=== PATIENT | male | born 1970 | race Caucasian/White ===

== ENCOUNTER 2020-12-12 19:08 | Inpatient (IN) | payer OTHER, SELFPAY ==
[2020-12-12] VITALS (11 sets, daily range): BP systolic 75–113; BP diastolic 52–75; PULSE 81–107; RESP 18; TEMP 37; O2SAT 92–100
--- NOTE | 2020-12-12 19:20 | ED_ITS ---
HPI - Dental/Oral General Chief complaint: Dental/Oral Stated complaint: LEFT SIDE OF FACE SWELLING Time Seen by Provider: 12/12/20 19:19 Source: patient Mode of arrival: Ambulatory Limitations: no limitations History of Present Illness HPI Narrative: Patient is a 50-year-old male history of diabetes coronary artery disease hypertension presenting will left side of neck swelling which he says has been there for last 5 days. He denies any difficulty swallowing no tongue pain no difficulty breathing. He does have poor dental hygiene. He initially saw his PCP who told him to suck on lemon drops but it has progressively gotten worse. He denies any tongue pain. He started developing headache today which brought him to the emergency department. He denies any chest pain fever chills nausea or vomiting Related Data Home Medications Medication Instructions Recorded Confirmed Acid Senior Qa Analyst (omeprazole) 40 mg 12/13/20 aspirin 325 mg PO QPM 12/13/20 12/13/20 atorvastatin 80 mg PO QPM 12/13/20 12/13/20 carvedilol 6.25 mg PO BID 12/13/20 12/13/20 furosemide 20 mg PO BID 12/13/20 12/13/20 glipizide 20 mg PO QAM 12/13/20 12/13/20 insulin glargine [Lantus U-100 30 unit SUBCUT QPM 12/13/20 12/13/20 Insulin] lisinopril 20 mg PO QAM 12/13/20 12/13/20 metformin 750 mg PO QPM 12/13/20 12/13/20 omeprazole 40 mg PO QAM 12/13/20 12/13/20 pantoprazole PO 12/13/20 spironolactone 50 mg PO QAM 12/13/20 12/13/20 Allergies Allergy/AdvReac Type Severity Reaction Status Date / Time No Known Drug Allergies Allergy Verified 12/12/20 19:53 Review of Systems Review of Systems ROS Unobtainable: All systems reviewed & are unremarkable except as noted in HPI and below Constitutional Constitutional: Denies chills, Denies fever(s), Denies lethargy and Denies weakness Eyes Eyes: Denies change in vision, Denies eye discharge, Denies irritation and Denies loss of vision ENT Ears, Nose, Mouth, and Throat: Reports system reviewed and no additional complaints, except as documented Cardiovascular Cardiovascular: Denies chest pain, Denies irregular heart rhythm, Denies lightheadedness, Denies palpitations, Denies dyspnea, Denies dyspnea on exertion and Denies orthopnea Respiratory Respiratory: Denies cough, Denies dyspnea, Denies dyspnea on exertion and Denies wheezing Gastrointestinal Gastrointestinal: Denies abdominal pain, Denies change in bowel habits, Denies diarrhea, Denies nausea and Denies vomiting Integumentary/Breasts Skin/Breast: Reports system reviewed and no additional complaints, except as documented and Reports skin swelling Neurologic Neurologic: Denies loss of vision and Denies weakness Endocrine Endocrine: Denies palpitations Allergic/Immunologic Allergic/Immunologic: Denies wheezing Patient History Medical History (Updated 12/13/20 @ 00:32 by JANIE Santos) Coronary artery disease Essential hypertension History of necrotizing fasciitis History of ST elevation myocardial infarction (STEMI) Mixed hyperlipidemia due to type 2 diabetes mellitus Pacemaker Surgical History (Updated 12/13/20 @ 00:32 by JANIE Santos) History of coronary artery bypass graft x 6 History of implanted electronic device Family History (Updated 12/13/20 @ 00:34 by JANIE Santos) Father Hypertension Hyperlipidemia Stroke Diabetes mellitus Heart attack Mother Diabetes mellitus Heart attack Hyperlipidemia Hypertension Stroke Social History household members: spouse and family Smoking Status: Former smoker alcohol intake: current Exam Initial Vital Signs Initial Vital Signs: Vital Signs Pulse Rate 107 H 12/12/20 19:15 Blood Pressure 101/61 12/12/20 19:15 Pulse Oximetry 98 12/12/20 19:15 GENERAL: [Well-appearing, well-nourished] and in [no acute] distress. HEENT: Head atraumatic,EOMI, pupils reactive, face symmetric, [moist] mucous membranes NECK: Large Sub mandibular swelling. poor dentition and hygiene decreased range of motion due to swelling mild erythema no obvious fluctuation. neck is supple no stridor CARDIOVASCULAR: Regular rate and rhythm without murmurs, rubs or gallops. RESPIRATORY: Breath sounds equal bilaterally, no wheezes rales or rhonchi. ABDOMEN: Soft, nontender. Normoactive bowel sounds all 4 quadrants. No guarding or rebound EXTREMITIES: Normal range of motion, no clubbing or edema. Neurovascularly intact NEUROLOGICAL: Alert and oriented x4.Normal gait and speech. SKIN: Warm, dry, no laceration, no petechiae, no rashes or lesions. Course Orders Ordered: ED Orders 12/12/20 22:50 Lactate (Lactic Acid) Stat 12/12/20 22:51 COVID19 - ADMIT (SOAP INSPECTOR swab/PCR) Stat 12/12/20 23:30 Education, smoking cessation ONGOING 12/13/20 04:58 Complete Blood Count AUTO DIFF DAILY Comprehensive Metabolic Panel DAILY Partial Thromboplastin Time Routine Prothrombin Time INR Routine 12/14/20 05:00 Complete Blood Count AUTO DIFF DAILY Comprehensive Metabolic Panel DAILY 12/15/20 05:00 Complete Blood Count AUTO DIFF DAILY Acetaminophen (Acetaminophen 325 Mg Tablet) 650 mg PO Q6HR PRN PRN Reason: Fever/Mild Pain (1-3) Dexamethasone (Dexamethasone 10 Mg/Ml Vial) 10 mg IV BID [facility] Dextrose (Dextrose 50 % In Water 25 Gm/50 Ml Syringe) 25 gm IV PRN PRN PRN Reason: Hypoglycemia Enoxaparin Sodium (Enoxaparin 40 Mg/0.4 Ml Syringe) 40 mg SUBCUT DAILY [facility] Ampicillin Sodium/Sulbactam (Sodium 3 gm/ Sodium Chloride) 100 mls @ 100 mls/hr IV Q6H [facility] Last Infusion: 12/13/20 02:30 Dose: 0 mls/hr Documented by: Admin: 12/13/20 01:28 Dose: 100 mls/hr Documented by: DOUGLAS Insulin Glargine (Insulin Glargine 100 Unit/Ml 3ml Pen) 40 unit SUBCUT 2100 [facility] Insulin Human Lispro (Insulin Lispro 100 Unit/Ml 3ml Vial) 0 unit SUBCUT ACHS [facility]; Protocol Ketorolac Tromethamine (Ketorolac 30 Mg/Ml Vial) 30 mg IV Q6HR PRN PRN Reason: Pain, Severe (7-10) Stop: 12/17/20 23:32 Last Admin: 12/13/20 00:49 Dose: 30 mg Documented by: DOUGLAS Naloxone HCl (Naloxone 0.4 Mg/Ml Vial) 0.2 mg IV Q2MIN PRN PRN Reason: Opiate Reversal Nicotine (Nicotine 14 Patch) 14 mg TOP DAILY [facility] Last Admin: 12/13/20 05:08 Dose: 14 mg Documented by: DOUGLAS Ondansetron HCl (Ondansetron 4 Mg/2 Ml Inj) 4 mg IV Q8HR PRN PRN Reason: Nausea And Vomiting Pantoprazole Sodium (Pantoprazole 40 Mg Vial) 40 mg IV DAILY [facility] Discontinued Medications Ampicillin Sodium/Sulbactam (Sodium 3 gm/ Sodium Chloride) 100 mls @ 100 mls/hr IV NOW ONE Stop: 12/12/20 19:39 Last Infusion: 12/12/20 21:38 Dose: 0 mls/hr Documented by: Admin: 12/12/20 20:15 Dose: 100 mls/hr Documented by: SIMI Dexamethasone 20 mg/ Sodium (Chloride) 52 mls @ 208 mls/hr IV NOW ONE Stop: 12/12/20 22:20 Last Infusion: 12/12/20 22:55 Dose: 208 mls/hr Documented by: Admin: 12/12/20 22:34 Dose: 208 mls/hr Documented by: SIMI Sodium Chloride (Normal Saline 0.9%) 1,000 mls @ 1,000 mls/hr IV BOLUS ONE Stop: 12/12/20 23:22 Last Infusion: 12/13/20 00:22 Dose: 0 mls/hr Documented by: Admin: 12/12/20 22:39 Dose: 1,000 mls/hr Documented by: SIMI Sodium Chloride (Normal Saline 0.9%) 1,000 mls @ 1,000 mls/hr IV BOLUS ONE Stop: 12/12/20 23:24 Last Infusion: 12/13/20 00:22 Dose: 0 mls/hr Documented by: Admin: 12/12/20 22:54 Dose: 1,000 mls/hr Documented by: SIMI Sodium Chloride (Normal Saline 0.9%) 500 mls @ 1,000 mls/hr IV BOLUS ONE Stop: 12/13/20 02:06 Last Infusion: 12/13/20 02:30 Dose: 0 mls/hr Documented by: Admin: 12/13/20 01:57 Dose: 1,000 mls/hr Documented by: DOUGLAS Insulin Glargine (Insulin Glargine 100 Unit/Ml 3ml Pen) 40 unit SUBCUT BEDTIME ONE Stop: 12/12/20 23:40 Last Admin: 12/13/20 01:35 Dose: Not Given Documented by: DOUGLAS Insulin Glargine (Insulin Glargine 100 Unit/Ml 3ml Pen) 40 unit SUBCUT BEDTIME ONE Stop: 12/13/20 01:16 Last Admin: 12/13/20 01:30 Dose: 40 unit Documented by: DOUGLAS Cosigned by: EDUARDO Morphine Sulfate (Morphine 2 Mg/Ml Inj) 2 mg IV NOW ONE Stop: 12/12/20 20:58 Last Admin: 12/12/20 21:03 Dose: 2 mg Documented by: JAVONFF Vital Signs Vital signs: Vital Signs - 8 hr 12/12/20 22:22 12/12/20 22:23 12/12/20 22:24 Pulse Rate 91 H 92 H 87 Blood Pressure 84/59 L 83/54 L Pulse Oximetry 93 92 93 12/12/20 22:30 12/12/20 22:35 12/12/20 23:00 Pulse Rate 87 86 83 Blood Pressure 77/52 L 79/55 L 75/59 L Pulse Oximetry 92 94 97 12/12/20 23:05 12/12/20 23:30 Pulse Rate 88 81 Blood Pressure 113/64 111/65 Pulse Oximetry 98 97 MDM - Dental/Oral Lab Data Attestation: I reviewed the patient's lab results. Result diagrams: 12/13/20 04:58 12/13/20 04:58 Labs: Lab Results 12/12/20 12/12/20 12/12/20 Range/Units 19:45 19:45 19:45 WBC 12.1 H (4.5-11.0) X10^3/uL RBC 4.81 (4.5-5.9) X10^6/uL Hgb 14.5 (13.5-17.5) g/dL Hct 42.9 (41-53) % MCV 89.1 (80-100) fL MCH 30.1 (26-34) PG MCHC 33.8 (30-36) % RDW 14.4 (11.6-14.8) % Plt Count 161 (150-400) X10^3/uL Neut % (Auto) 88.4 H (50-75) % Lymph % (Auto) 4.1 L (25-40) % Larue % (Auto) 6.6 (3-14) % Eos % (Auto) 0.5 L (2-4) % Baso % (Auto) 0.4 (0-2) % Neut # (Auto) 83880 H (5323-1811) /uL Lymph # (Auto) 500 L (6062-7545) /uL Larue # (Auto) 800 (0-900) /uL Eos # (Auto) 100 (0-450) /uL Baso # (Auto) 0 (0-100) /uL Sodium 127 L (137-145) mmol/L Potassium 4.7 (3.4-5.1) mmol/L Chloride 95 L (98-107) mmol/L Carbon Dioxide 24 (22-32) mmol/L BUN 29 H (9-20) mg/dL Creatinine 1.67 H (0.66-1.25) mg/dL Estimated GFR 43.4 L (>60) mL/min BUN/Creatinine Ratio 17.4 (6-22) Glucose 335 H (70-100) mg/dL Hemoglobin A1c (4.0-6.0) % Lactate 1.5 (0.7-2.1) mmol/L Calcium 8.7 (8.4-10.2) mg/dL Magnesium (1.6-2.3) mg/dL Total Bilirubin 0.9 (0.2-1.3) mg/dL AST 19 (17-59) IU/L ALT 19 (<50) IU/L Alkaline Phosphatase 106 (38-126) U/L Total Protein 6.6 (6.3-8.2) g/dL Albumin 3.4 L (3.5-5.0) g/dL Globulin 3.2 (1.7-4.1) g/dL Albumin/Globulin Ratio 1.1 (1.0-2.8) Procalcitonin (<0.5) ng/mL SARS-CoV-2 (PCR) (Negative) 12/12/20 12/12/20 12/12/20 Range/Units 19:45 19:45 19:45 WBC (4.5-11.0) X10^3/uL RBC (4.5-5.9) X10^6/uL Hgb (13.5-17.5) g/dL Hct (41-53) % MCV (80-100) fL MCH (26-34) PG MCHC (30-36) % RDW (11.6-14.8) % Plt Count (150-400) X10^3/uL Neut % (Auto) (50-75) % Lymph % (Auto) (25-40) % Larue % (Auto) (3-14) % Eos % (Auto) (2-4) % Baso % (Auto) (0-2) % Neut # (Auto) (3467-9778) /uL Lymph # (Auto) (2105-3297) /uL Larue # (Auto) (0-900) /uL Eos # (Auto) (0-450) /uL Baso # (Auto) (0-100) /uL Sodium (137-145) mmol/L Potassium (3.4-5.1) mmol/L Chloride (98-107) mmol/L Carbon Dioxide (22-32) mmol/L BUN (9-20) mg/dL Creatinine (0.66-1.25) mg/dL Estimated GFR (>60) mL/min BUN/Creatinine Ratio (6-22) Glucose (70-100) mg/dL Hemoglobin A1c 10.2 H (4.0-6.0) % Lactate (0.7-2.1) mmol/L Calcium (8.4-10.2) mg/dL Magnesium 1.9 (1.6-2.3) mg/dL Total Bilirubin (0.2-1.3) mg/dL AST (17-59) IU/L ALT (<50) IU/L Alkaline Phosphatase (38-126) U/L Total Protein (6.3-8.2) g/dL Albumin (3.5-5.0) g/dL Globulin (1.7-4.1) g/dL Albumin/Globulin Ratio (1.0-2.8) Procalcitonin 0.41 (<0.5) ng/mL SARS-CoV-2 (PCR) (Negative) 12/12/20 12/12/20 Range/Units 22:50 22:51 WBC (4.5-11.0) X10^3/uL RBC (4.5-5.9) X10^6/uL Hgb (13.5-17.5) g/dL Hct (41-53) % MCV (80-100) fL MCH (26-34) PG MCHC (30-36) % RDW (11.6-14.8) % Plt Count (150-400) X10^3/uL Neut % (Auto) (50-75) % Lymph % (Auto) (25-40) % Larue % (Auto) (3-14) % Eos % (Auto) (2-4) % Baso % (Auto) (0-2) % Neut # (Auto) (3628-7509) /uL Lymph # (Auto) (4740-8805) /uL Larue # (Auto) (0-900) /uL Eos # (Auto) (0-450) /uL Baso # (Auto) (0-100) /uL Sodium (137-145) mmol/L Potassium (3.4-5.1) mmol/L Chloride (98-107) mmol/L Carbon Dioxide (22-32) mmol/L BUN (9-20) mg/dL Creatinine (0.66-1.25) mg/dL Estimated GFR (>60) mL/min BUN/Creatinine Ratio (6-22) Glucose (70-100) mg/dL Hemoglobin A1c (4.0-6.0) % Lactate 1.3 (0.7-2.1) mmol/L Calcium (8.4-10.2) mg/dL Magnesium (1.6-2.3) mg/dL Total Bilirubin (0.2-1.3) mg/dL AST (17-59) IU/L ALT (<50) IU/L Alkaline Phosphatase (38-126) U/L Total Protein (6.3-8.2) g/dL Albumin (3.5-5.0) g/dL Globulin (1.7-4.1) g/dL Albumin/Globulin Ratio (1.0-2.8) Procalcitonin (<0.5) ng/mL SARS-CoV-2 (PCR) Negative (Negative) Imaging Data Ct soft tissue neck: Radiologist's Impression: PROCEDURE: CT SOFT TISSUE NECK W CON INDICATIONS: Abscess TECHNIQUE: After the administration of intravenous contrast, 3.0 mm axial sections acquired from the sella to the aortic arch. Additional oblique axial 3.0 mm sections acquired through the pharynx. 3 mm thick coronal and sagittal reformats were generated. For radiation dose reduction, the following was used: automated exposure control. COMPARISON: None. FINDINGS: Image quality: Excellent. Lymph nodes: No enlarged lymph nodes seen throughout the neck. Vessels: Visualized vasculature appears patent. Small amount of gas within the veins in the neck bilaterally. Small amount of gas within the jugular vein. This gas could be due to IV bolus injection. Neck spaces: Left submental fluid collection measuring 2.2 x 1.9 x 1.8 cm, ( and ), estimated volume of 4 cc. This is in the region of the left submandibular gland There is surrounding soft tissue thickening and fat stranding and heterogeneous surrounding enhancement. Small adjacent lymph node which is favored to be reactive. Thickening along the platysmas. The oropharynx, nasopharynx, and pharynx demonstrate no mucosal lesions. The vocal cords, false vocal cords, pyriform sinuses, epiglottis, vallecula, and tongue base all appear normal. Extramucosal spaces appear unremarkable. Glands: The parotid and submandibular glands appear normal. Thyroid gland is unremarkable. Miscellaneous: Visualized brain and orbits appear normal. Lung apices appear clear. Superficial soft tissues appear normal. Left pacemaker. Bones: No suspicious bony lesions. Visualized sinuses and mastoids appear unremarkable. Post median sternotomy. IMPRESSION: 1. Findings most compatible with left submental abscess measuring 2.2 cm and volume of 4 cc. Suspect submandibular gland abscess. A suppurative lymph node with abscess or mass could have a similar appearance. -Recommend follow-up to resolution. 2. No enlarged lymph nodes identified. 3. A trace amount of gas within the bilateral neck veins. Suspect that this is iatrogenic due to IV contrast bolus administration. Dictated by: Dorian Buenrostro M.D. on 12/12/2020 at 21:34 Approved by: Dorian Buenrostro M.D. on 12/12/2020 at 21:55 MDM Narrative Medical decision making narrative: Patient has obvious swelling of his neck he has a short wide neck at baseline and would be difficult airway. Concern is for deep neck soft tissue infection and Landen's angina. Currently his airway is intact is he is managing his own secretions he is not in a significant amount of pain. CT does confirm a 2.2 cm abscess. He overall appears comfortable but requesting medication for headache. He is given 2 mg of morphine. 2200-Dr. Mikie WANG updated on patient's symptoms test results and CT scan at this time recommends 20 mg of Decadron and then 10 mg IV twice a day along with IV antibiotics and close monitoring. He is happy to consult and recommends hospitalist call him 1st thing in the morning. Initial blood pressure was 101/75 unfortunately no follow-up blood pressures were taken until 3 hours later where was noted to be significantly low systolic in the 70s and 80s. Unlikely to be related to the morphine which was given an hour and half prior. Repeat lactate was done 2nd IV placed normal saline bolus given. His blood pressure retaken on the right arm in a instantly was 113/64. Patient states that he always has low blood pressures in his left arm because he had a 6 vessel CABG and they took veins from that. At this time patient does not appear to be in septic shock. He continues to manage his own airway. Hospitalist Audi STRINGER in ED to see and evaluate patient updated on patient's all blood pressure please keep cuff on right arm Discharge Plan Departure Patient Disposition: Admitted As Inpatient Clinical Impression: Submental abscess, Acute hyponatremia Admit Date/Time: 12/12/20 23:35 Admit Provider: Deborah Huntley
--- NOTE | 2020-12-12 19:37 | DI.CT.S_ITS ---
PROCEDURE: CT SOFT TISSUE NECK W CON INDICATIONS: Abscess TECHNIQUE: After the administration of intravenous contrast, 3.0 mm axial sections acquired from the sella to the aortic arch. Additional oblique axial 3.0 mm sections acquired through the pharynx. 3 mm thick coronal and sagittal reformats were generated. For radiation dose reduction, the following was used: automated exposure control. COMPARISON: None. FINDINGS: Image quality: Excellent. Lymph nodes: No enlarged lymph nodes seen throughout the neck. Vessels: Visualized vasculature appears patent. Small amount of gas within the veins in the neck bilaterally. Small amount of gas within the jugular vein. This gas could be due to IV bolus injection. Neck spaces: Left submental fluid collection measuring 2.2 x 1.9 x 1.8 cm, ( and ), estimated volume of 4 cc. This is in the region of the left submandibular gland There is surrounding soft tissue thickening and fat stranding and heterogeneous surrounding enhancement. Small adjacent lymph node which is favored to be reactive. Thickening along the platysmas. The oropharynx, nasopharynx, and pharynx demonstrate no mucosal lesions. The vocal cords, false vocal cords, pyriform sinuses, epiglottis, vallecula, and tongue base all appear normal. Extramucosal spaces appear unremarkable. Glands: The parotid and submandibular glands appear normal. Thyroid gland is unremarkable. Miscellaneous: Visualized brain and orbits appear normal. Lung apices appear clear. Superficial soft tissues appear normal. Left pacemaker. Bones: No suspicious bony lesions. Visualized sinuses and mastoids appear unremarkable. Post median sternotomy. IMPRESSION: 1. Findings most compatible with left submental abscess measuring 2.2 cm and volume of 4 cc. Suspect submandibular gland abscess. A suppurative lymph node with abscess or mass could have a similar appearance. -Recommend follow-up to resolution. 2. No enlarged lymph nodes identified. 3. A trace amount of gas within the bilateral neck veins. Suspect that this is iatrogenic due to IV contrast bolus administration. Dictated by: Dorian Buenrostro M.D. on 12/12/2020 at 21:34 Approved by: Dorian Buenrostro M.D. on 12/12/2020 at 21:55
[2020-12-12 19:55] LABS: Add Manual Diff / Slide Review NO; Basophils Absolute Auto 0 /uL (0-100); Basophils Percent Auto 0.4 % (0-2); Eosinophils Absolute Auto 100 /uL (0-450); Eosinophils Percent Auto 0.5 % (2-4); Hematocrit 42.9 % (41-53); Hemoglobin 14.5 g/dL (13.5-17.5); Lymphocytes Absolute Auto 500 /uL (1100-4500); Lymphocytes Percent Auto 4.1 % (25-40); Mean Corpuscular HGB Conc 33.8 % (30-36); Mean Corpuscular Hemoglobin 30.1 PG (26-34); Mean Corpuscular Volume 89.1 fL (80-100); Monocytes Absolute Auto 800 /uL (0-900); Monocytes Percent Auto 6.6 % (3-14); Neutrophils Absolute Auto 10700 /uL (1500-7000); Neutrophils Percent Auto 88.4 % (50-75); Platelet Count 161 X10^3/uL (150-400); Red Blood Cell Count 4.81 X10^6/uL (4.5-5.9); Red Cell Distribution Width 14.4 % (11.6-14.8); White Blood Cell Count 12.1 X10^3/uL (4.5-11.0)
[2020-12-12 20:13] LABS: Alanine Aminotransferase 19 IU/L (<50); Albumin 3.4 g/dL (3.5-5.0); Albumin Globulin Ratio 1.1 (1.0-2.8); Alkaline Phosphatase 106 U/L (38-126); Aspartate Aminotransferase 19 IU/L (17-59); BUN Creatinine Ratio 17.4 (6-22); Bilirubin Total 0.9 mg/dL (0.2-1.3); Blood Urea Nitrogen 29 mg/dL (9-20); Calcium 8.7 mg/dL (8.4-10.2); Carbon Dioxide 24 mmol/L (22-32); Chloride 95 mmol/L (98-107); Estimated Glomerular Filt Rate 43.4 mL/min (>60); Globulin 3.2 g/dL (1.7-4.1); Glucose 335 mg/dL (70-100); HEMOLYSIS < 15 (0-50); Lactate (Lactic Acid) 1.5 mmol/L (0.7-2.1); Potassium 4.7 mmol/L (3.4-5.1); Sodium 127 mmol/L (137-145); Total Protein 6.6 g/dL (6.3-8.2)
[2020-12-12] MEDS: AMPICILLIN/SULBACTAM 3 GM 3 GM in SODIUM CHLORIDE 0.9% 100 ML IV (20:15)
[2020-12-12] MEDS: MORPHINE 2 MG/ML INJ IV (21:03)
[2020-12-12] MEDS: dexAMETHasone 20 MG in SODIUM CHLORIDE 0.9% 50 ML 208 ML IV (22:34)
[2020-12-12] MEDS: SODIUM CHLORIDE 0.9% 1,000 ML 1000 ML IV ×2 (22:39→22:54)
[2020-12-12 22:57] LABS: Procalcitonin 0.41 ng/mL (<0.5)
[2020-12-12 23:11] LABS: Lactate (Lactic Acid) 1.3 mmol/L (0.7-2.1)
--- NOTE | 2020-12-12 23:42 | PM.HP.1 ---
History of Present Illness History of Present Illness Date Patient Seen: 12/12/20 Time Patient Seen: 23:42 Chief complaint: LEFT SIDE OF FACE SWELLING Narrative: Patient is a 50-year-old male [address] presented to the ED with chief compliant of left side of neck swelling with a fever and chills for the last 5 days. He denies any difficulty swallowing, no tongue pain, no difficulty breathing. He does have poor dental hygiene and reports a hx of dental infections. He last saw a dentist over 20yrs ago. He initially saw his PCP who told him to suck on lemon drops but it has progressively gotten worse. He started developing headache today which brought him to the emergency department. He denies any chest pain or SOB. Patient states that he has had no Nausea or vomiting until he received morphine in the ED today. Patient is in no distress, does not appear septic or fluid overloaded,airway is protected and stable, and resting quietly in the bed. Patient has a history hypertension, hyperlipidemia, coronary artery disease with a STEMI /vessel x 6 CABG and carotid occlusion, pacemaker/defibrillator implant (patient's mobile architect Dr. Fina Best), type 2 diabetes. Patient is unable to tell me if he is taking an anticoagulant, the nurse contacted his who also was unable to tell us if he is taking anticoagulant. Patient's vitals upon admit BP 75/59, HR 79, RR 18, O2 saturation 97% on room air with a map of 63. Labs: WBC 12.1, neut# 10,700, low sodium 127, Cl 95, BUN 29, creatinine 1.67, glucose 335, EGFR 43.4, patient did not appear to be in DKA and has an anion gap of 8, patient's creatinine in present elevation of 0.42 noting mild KAMILAH though patient's baseline is unknown. Soft Tissue Neck CT:Findings most compatible with left submental abscess measuring 2.2 cm and volume of 4 cc. Suspect submandibular gland abscess. 2199-Dr. Anthony Deluna ENT updated on patient's symptoms test results and CT scan at this time recommends 20 mg of Decadron and then 10 mg IV twice a day along with IV antibiotics and close monitoring. He is happy to consult and recommends hospitalist call him 1st thing in the morning. Patient History Medical History (Updated 12/13/20 @ 00:32 by JANIE Santos) Coronary artery disease Essential hypertension History of necrotizing fasciitis History of ST elevation myocardial infarction (STEMI) Mixed hyperlipidemia due to type 2 diabetes mellitus Pacemaker Surgical History (Updated 12/13/20 @ 00:32 by JANIE Santos) History of coronary artery bypass graft x 6 History of implanted electronic device Family & Social History Family History (Updated 12/13/20 @ 00:33 by JANIE Santos) Father Hypertension Hyperlipidemia Stroke Diabetes mellitus Heart attack Mother Diabetes mellitus Heart attack Hyperlipidemia Hypertension Stroke Family history unavailable: No Social History: 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 Safety & Behavioral: Patient feels safe in his home environment Tobacco & Substance use: Tobacco: Smoked for 30 years, now only chews and has used CHEW x 25 years Alcohol: Has a couple drinks of beer or hard alcohol once or twice every 2 weeks Recreational drugs: Never used. Meds Home Medications and Allergies Allergies Allergy/AdvReac Type Severity Reaction Status Date / Time No Known Drug Allergies Allergy Verified 12/12/20 19:53 Review of Systems Review of Systems ROS: Yes All systems reviewed with the patient and are negative except as otherwise documented ENT Ears, Nose, Mouth, and Throat: Yes facial pain (Left side jaw) and Yes neck pain Musculoskeletal Musculoskeletal: Reports neck pain Exam Vital Signs (past 8 hours): - 12/12/20 19:15 12/12/20 19:16 12/12/20 22:22 Temperature 98.6 F Pulse Rate 107 H 96 H 91 H Respiratory Rate 18 Blood Pressure 101/61 101/75 Pulse Oximetry 98 100 93 12/12/20 22:23 12/12/20 22:24 12/12/20 22:30 Temperature Pulse Rate 92 H 87 87 Respiratory Rate Blood Pressure 84/59 L 83/54 L 77/52 L Pulse Oximetry 92 93 92 12/12/20 22:35 12/12/20 23:00 12/12/20 23:05 Temperature Pulse Rate 86 83 88 Respiratory Rate Blood Pressure 79/55 L 75/59 L 113/64 Pulse Oximetry 94 97 98 12/12/20 23:30 Temperature Pulse Rate 81 Respiratory Rate Blood Pressure 111/65 Pulse Oximetry 97 Oxygen Delivery Method Room Air Narrative Exam Narrative: General: Patient is a well-developed, well-nourished obese male in no distress at this time. HEENT: Normocephalic, atraumatic, extraocular muscles intact, oral pharynx is clear, noted moderate submandibular inflammation, poor dentition and hygiene decreased range of motion due to swelling mild erythema no obvious fluctuation. Neck is supple and symmetric without stridor, trachea is midline, no thyroid enlargement, positive tenderness with palpation. Negative for JVD Chest: Normal AP diameter and contour without kyphoscoliosis, no nasal flaring, retractions, or tachypneic labored Lungs: Auscultation of all lung bates are clear without adventitious sounds, wheezes, rhonchi, or rales. Cardio: regular rate and rhythm without murmur, rubs, or gallops, no carotid bruit, no cardiac pulsations present. Abdomen: Soft nontender, negative for organomegaly, or masses. Bowel sounds are present in all 4 quadrants without guarding or rebound, no CVA tenderness. Musculoskeletal: Muscle strength and tone are equal within normal limits, no deformity, crepitus, effusions, cyanosis, clubbing or edema present. Full range of motion intact radial and pedal pulses are normal. Skin: Warm dry and intact without rashes, ulcerations or petechiae. Neuro: Alert and orientated x3, strength is +5/5 in all extremities, sensation to touch intact, no gross deficits noted of cranial nerves. Psych: Patient has a moderate-kept appearance, appropriate affect, mental status attitude thought context and judgment are appropriate for age. Objective Labs Result Diagrams: 12/12/20 19:45 12/12/20 19:45 Labs: Laboratory Results - last 24 hr 12/12/20 12/12/20 12/12/20 19:45 19:45 19:45 WBC 12.1 H RBC 4.81 Hgb 14.5 Hct 42.9 MCV 89.1 MCH 30.1 MCHC 33.8 RDW 14.4 Plt Count 161 Neut % (Auto) 88.4 H Lymph % (Auto) 4.1 L [place] % (Auto) 6.6 Eos % (Auto) 0.5 L Baso % (Auto) 0.4 Neut # (Auto) 65338 H Lymph # (Auto) 500 L [place] # (Auto) 800 Eos # (Auto) 100 Baso # (Auto) 0 Sodium 127 L Potassium 4.7 Chloride 95 L Carbon Dioxide 24 BUN 29 H Creatinine 1.67 H Estimated GFR 43.4 L BUN/Creatinine Ratio 17.4 Glucose 335 H Lactate 1.5 Calcium 8.7 Total Bilirubin 0.9 AST 19 ALT 19 Alkaline Phosphatase 106 Total Protein 6.6 Albumin 3.4 L Globulin 3.2 Albumin/Globulin Ratio 1.1 Procalcitonin 12/12/20 12/12/20 19:45 22:50 WBC RBC Hgb Hct MCV MCH MCHC RDW Plt Count Neut % (Auto) Lymph % (Auto) [place] % (Auto) Eos % (Auto) Baso % (Auto) Neut # (Auto) Lymph # (Auto) [place] # (Auto) Eos # (Auto) Baso # (Auto) Sodium Potassium Chloride Carbon Dioxide BUN Creatinine Estimated GFR BUN/Creatinine Ratio Glucose Lactate 1.3 Calcium Total Bilirubin AST ALT Alkaline Phosphatase Total Protein Albumin Globulin Albumin/Globulin Ratio Procalcitonin 0.41 Assessment & Plan Assessment & Plan narrative: This patient requires Intensive care inpatient hospital management/monitoring for mild sepsis/KAMILAH resulting from a left submental abscess, after failing outpatient management. The patient is at much higher risk for medical and surgical complications because of his history hypertension, hyperlipidemia, coronary artery disease with a STEMI /vessel x 6 CABG/carotid occlusion, pacemaker/defibrillator implant (patient's mobile architect Dr. Fina Best), type 2 diabetes.. These factors increase the difficulty and complexity of medical and surgical interventions and increases the chances of poor outcomes such as morbidity and mortality, as well as complications such as Septic shock, endocarditis, and acute respiratory failure. The patient's history of tobacco abuse and current abuse of chewing tobacco will impact his oxygenation, which also predisposes the patient to infections and cancer. Patient's expected length of stay to be less than 2 midnights. 1. Mild sepsis(Hypotension/leukocytosis)/mild KAMILAH resulting from a left submental abscess, acute, present on admission -as evidenced by BP 84/59, repeat 79/55, repeat 75/59, HR 79, RR 18, O2 saturation 97% on room air with a map of 63. Labs: WBC 12.1, with left shift, neut# 10,700, low sodium 127, Cl 95, BUN 29, creatinine 1.67, glucose 335, EGFR 43.4, patient did not appear to be in DKA and has an anion gap of 8, patient's creatinine in present elevation of 0.42 noting mild KAMILAH though patient's baseline is unknown and mild sepsis as evidenced by SOFA score :2 with mild KAMILAH and hypotension. Soft Tissue Neck CT:Findings most compatible with left submental abscess measuring 2.2 cm and volume of 4 cc. Suspect submandibular gland abscess. A suppurative lymph node with abscess or mass could have a similar appearance. ED Consult: 2199-Dr. Anthony Deluna ENT updated on patient's symptoms test results and CT scan at this time recommends 20 mg of Decadron and then 10 mg IV twice a day along with IV antibiotics and close monitoring. He is happy to consult and recommends hospitalist call him 1st thing in the morning. -monitor airway, IV access x2 18-16 gauge, antiemetics for nausea and vomiting, monitor electrolyte imbalance. Monitor for arrhythmia, decrease left ventricular contractility, atrial dilation and or constriction. Watch for increasing pCO2, monitor lactate, calcium, sodium. Aggressive fluid resuscitation- monitor for CHF and pulmonary edema: 30ML/kg, 2-3 L of NS, a map goal > 65, urinary output > 0.5 cc/kg/hr -patient admitted to the ICU, placed on telemetry, vital signs Q hour until patient is hemodynamically stable and may progress to q.4 hours, I&O Q shift, weights daily, diet:Clear Liquids. Labs: CBC, CMP, lactate, blood cultures x2, MRSA, D-Dimer, procalcitonin Antibiotic provided and 1st hour for septic shock-patient given Unasyn 3gms/20 mg dexamethasone in ED. -Ordered Unasyn 3 g q.6 hours (to cover for MRSA)/ dexamethasone 10 mg IV b.i.d. 2. Hyponatremia, Moderate, acute, present on admission -as evidence by sodium 127. Ordered urinalysis, urine sodium and urine creatinine to determine sodium correction. -patient to receive 2 L bolus normal saline. Continue to monitor electrolytes. --R/o hypertonic hyponatremia, pseudo hyponatremia due to hyperlipidemia, SIADH, hypothyroidism, secondary adrenal insufficiency, acquired reset Osmostat of chronic illness, thiazide- induced hyponatremia. 3. Mixed hyperlipidemia due to insulin-dependent type 2 diabetes/hyperglycemia, acute on chronic, present on admission, uncontrolled -as evidenced by a glucose 335. Lantus 30 units ordered q.h.s., and patient placed on diabetes protocol with high a sliding scale dosing. -will hold patient's metformin & glipizide. 4. Hypertension in the setting coronary artery disease and history of 6 vessel CABG following STEMI, with pacemaker/defibrillator implant, acute on chronic, not present on admission -patient was unsure as to the medications that he takes and or the dosages and his was unable to provide any further clarification but due to the patient's sustained hypotension will hold patient's perceived lisinopril and carvedilol. 5. Obesity, acute on chronic, present on admission -is evidence by BMI 34.4 -consideration will be given to dietary counseling 6. Tobacco (chewing)/nicotine dependence/abuse, acute on chronic, present on admission -patient counseled on tobacco cessation. -ordered nicotine patch Code status: Full code Surrogate decision maker: Spouse Gaudencio ALMANZA PCR: Negative DVT/VTE prophylaxis: Lovenox 40(creatinine clearance 80)/SCDs Scores GCS Jorge [place] coma scale eye opening: Spontaneous [place] coma scale verbal response: Orientated [place] coma scale motor response: Obey commands Jorge Luis coma scale total score: 15 SOFA PaO2/FIO2: >=400 mmHg Platelets: >= 150 Bilirubin: < 1.2 mg/dL Hypotension: MAP < 70 mmHg [place] Coma Scale: 15 Renal: Creatinine 1.2-1.9 mg/dL SOFA Score: 2 Wells' Criteria for PE Clinical signs and symptoms of DVT: No PE is #1 Dx or equally likely: No Heart rate > 100: No Immobilization at least 3 days or surg in previous 4 weeks: No History of PE or DVT: No Hemoptysis: No Malignancy w/Treatment within 6 months or palliative: No Wells' PE Score total: 0 Quality MIPS - Admit I confirm the patient?s Advance Care Plan is present, Code status is documented, Surrogate decision maker is in patient?s record [If Yes, STOP here]: Yes
[2020-12-12 23:58] LABS: Magnesium 1.9 mg/dL (1.6-2.3)
[2020-12-13] VITALS (31 sets, daily range): BP systolic 107–160; BP diastolic 58–96; PULSE 69–104; RESP 16–21; TEMP 36.1–36.9; O2SAT 93–99; BMI 34.4
[2020-12-13 00:01] LABS: Hemoglobin A1C% w Est Avg Glu 10.2 % (4.0-6.0)
[2020-12-13 00:06] LABS: COVID19 - ADMIT (NP swab/PCR) Negative (Negative)
[2020-12-13] MEDS: KETOROLAC 30 MG/ML VIAL IV ×3 (00:49→19:16)
[2020-12-13] MEDS: AMPICILLIN/SULBACTAM 3 GM 3 GM in SODIUM CHLORIDE 0.9% 100 ML IV ×4 (01:28→19:15)
[2020-12-13] MEDS: INSULIN GLARGINE 100 UNIT/ML 3ML PEN 40 UNIT SUBCUT ×2 (01:30→22:11)
[2020-12-13] MEDS: SODIUM CHLORIDE 0.9% 500 ML 1000 ML IV (01:57)
[2020-12-13] MEDS: NICOTINE 14 PATCH 14 MG TOP (05:08)
[2020-12-13 05:37] LABS: Add Manual Diff / Slide Review NO; Basophils Absolute Auto 0 /uL (0-100); Basophils Percent Auto 0.1 % (0-2); Eosinophils Absolute Auto 0 /uL (0-450); Hematocrit 42.4 % (41-53); Hemoglobin 14.3 g/dL (13.5-17.5); INR 1.2 (0.9-1.3); Lymphocytes Absolute Auto 300 /uL (1100-4500); Lymphocytes Percent Auto 1.8 % (25-40); Mean Corpuscular HGB Conc 33.8 % (30-36); Mean Corpuscular Hemoglobin 30.2 PG (26-34); Mean Corpuscular Volume 89.4 fL (80-100); Monocytes Absolute Auto 900 /uL (0-900); Monocytes Percent Auto 5.6 % (3-14); Neutrophils Absolute Auto 14900 /uL (1500-7000); Neutrophils Percent Auto 92.5 % (50-75); Platelet Count 159 X10^3/uL (150-400); Prothrombin Time 13.9 SECONDS (10.1-12.7); Red Blood Cell Count 4.74 X10^6/uL (4.5-5.9); Red Cell Distribution Width 14.5 % (11.6-14.8); White Blood Cell Count 16.1 X10^3/uL (4.5-11.0)
[2020-12-13 05:40] LABS: PTT Partial Thromboplastin Tim 32 SECONDS (26.4-36.2)
[2020-12-13 05:43] LABS: Lactate (Lactic Acid) 1.3 mmol/L (0.7-2.1)
[2020-12-13 05:44] LABS: Alanine Aminotransferase 17 IU/L (<50); Albumin 3.3 g/dL (3.5-5.0); Albumin Globulin Ratio 1.1 (1.0-2.8); Alkaline Phosphatase 88 U/L (38-126); Aspartate Aminotransferase 22 IU/L (17-59); BUN Creatinine Ratio 17.4 (6-22); Bilirubin Total 0.6 mg/dL (0.2-1.3); Blood Urea Nitrogen 27 mg/dL (9-20); Calcium 7.9 mg/dL (8.4-10.2); Carbon Dioxide 19 mmol/L (22-32); Chloride 100 mmol/L (98-107); Estimated Glomerular Filt Rate 47.3 mL/min (>60); Globulin 3.1 g/dL (1.7-4.1); Glucose 288 mg/dL (70-100); HEMOLYSIS < 15 (0-50); Sodium 127 mmol/L (137-145); Total Protein 6.4 g/dL (6.3-8.2)
[2020-12-13 05:48] LABS: D Dimer 488 ng/mL (<230); Potassium 5.3 mmol/L (3.4-5.1)
[2020-12-13] MEDS: LACTATED RINGERS 1,000 ML 60 ML IV (06:35)
--- NOTE | 2020-12-13 06:45 | PC.NURSE ---
Admit/Night Note-Patient brought to ICU room 227 at 0030, able to ambulate to bed without difficulty. A/Ox4, flat affect with short blunt answers to questions. IV Toradol given for 6/10 pain to left jaw area, effective, he dozed throughout the rest of the night, snoring, SpO2 >94% on RA, lung sounds CTA, denies difficulty breathing or swallowing. NSR 70s, does have a pacemaker/AICD, BP 115/59(79), 500ml NS bolus given, IVF changed to LR @ 60ml/hr in am, Unasyn given per schedule. 40 units Lantus given per 1x order. Nicotine patch placed. Wallet sent to hospital safe.
[2020-12-13] MEDS: SODIUM CHLORIDE 0.9% 1,000 ML 125 ML IV ×2 (08:15→17:13)
[2020-12-13] MEDS: INSULIN LISPRO 100 UNIT/ML 3ML VIAL SUBCUT ×4 (08:25→22:11)
[2020-12-13] MEDS: DEXAMETHASONE 10 MG/ML VIAL IV ×2 (08:40→22:09)
--- NOTE | 2020-12-13 10:18 | PC.NURSE ---
PT LYING IN BED WITH GRUFF ATTITUDE- OBVIOUSLY DISPLEASED ABOUT BEING IN THE HOSPITAL- IVF CHANGED FROM LR TO NS @ 125CC/H RECEIVING UNASYN AND IV TORADOL FOR PAIN. PT HAS NOT VOIDED YET THIS SHIFT - WILL COLLECT URINE SPEC WHEN HE DOES VOID- INITIALLY CLEAR LIQUIDS AND THEN THIS AM MADE NPO FOR CONSULT BY ENT AND POTENTIAL I/D OF RIGHT ORAL ABCESS
[2020-12-13] MEDS: LIDOCAINE 2% W/EPI INJ 20 ML INJ (10:40)
--- NOTE | 2020-12-13 11:24 | PM.PN.1 ---
Subjective Subjective Date Patient Seen: 12/13/20 Time Patient Seen: 11:33 Interval history: This is a 50-year-old male with a past medical history of hypertension, hyperlipidemia, history of ischemic cardiomyopathy secondary to CAD with AICD implant, type 2 diabetes admitted with sepsis secondary to a left submandibular abscess and subsequent cellulitis. Dr. Deluna with ENT performed bedside drainage his left submandibular abscess today with removal of 5 cc of fluid. Fluid was sent for culture. He remains on Unasyn and steroids. Who prior to drainage she complained of continued pain and discomfort in his neck, but felt more tenderness on the right actually. Exam Vital Signs (past 8 hours): - 12/13/20 03:30 12/13/20 03:45 12/13/20 04:00 Temperature Pulse Rate 70 71 70 Respiratory Rate 18 18 18 Blood Pressure 115/60 119/64 Pulse Oximetry 96 96 97 12/13/20 04:15 12/13/20 04:30 12/13/20 04:45 Temperature Pulse Rate 71 71 71 Respiratory Rate 16 18 18 Blood Pressure 125/65 Pulse Oximetry 96 93 98 12/13/20 05:00 12/13/20 05:15 12/13/20 05:30 Temperature Pulse Rate 70 73 70 Respiratory Rate 21 17 18 Blood Pressure 119/61 122/59 L Pulse Oximetry 97 96 95 12/13/20 05:45 12/13/20 06:00 12/13/20 06:15 Temperature Pulse Rate 69 70 74 Respiratory Rate 18 18 19 Blood Pressure 112/62 Pulse Oximetry 95 96 96 12/13/20 06:30 12/13/20 08:00 Temperature 97.1 F L Pulse Rate 76 75 Respiratory Rate 18 18 Blood Pressure 137/75 Pulse Oximetry 97 97 Oxygen Delivery Method Room Air Oxygen Flow Rate 0 Narrative Exam Narrative: General: Patient is a well-developed, well-nourished obese male in no distress at this time. HEENT: Normocephalic, atraumatic, extraocular muscles intact, oral pharynx is clear, noted moderate submandibular inflammation, poor dentition and hygiene decreased range of motion due to swelling and erythema. More tender on the R. Neck is supple and symmetric without stridor, trachea is midline. Chest: Normal AP diameter and contour without kyphoscoliosis, no nasal flaring, retractions, or tachypneic labored Lungs: Auscultation of all lung bates are clear without adventitious sounds, wheezes, rhonchi, or rales. Cardio: regular rate and rhythm without murmur, rubs, or gallops, no carotid bruit, no cardiac pulsations present. Abdomen: Soft nontender, negative for organomegaly, or masses. Bowel sounds are present in all 4 quadrants without guarding or rebound, no CVA tenderness. Musculoskeletal: Muscle strength and tone are equal within normal limits, no deformity, crepitus, effusions, cyanosis, clubbing or edema present. Full range of motion intact radial and pedal pulses are normal. Skin: Warm dry and intact without rashes, ulcerations or petechiae. Neuro: Alert and orientated x3, strength is +5/5 in all extremities, sensation to touch intact, no gross deficits noted of cranial nerves. Psych: Patient has a moderate-kept appearance, mildly irritable, mental status attitude thought context and judgment are appropriate for age. Objective Labs Result Diagrams: 12/13/20 04:58 12/13/20 04:58 Labs: Laboratory Results - last 24 hr 12/12/20 12/12/20 12/12/20 19:45 19:45 19:45 WBC 12.1 H RBC 4.81 Hgb 14.5 Hct 42.9 MCV 89.1 MCH 30.1 MCHC 33.8 RDW 14.4 Plt Count 161 Neut % (Auto) 88.4 H Lymph % (Auto) 4.1 L [place] % (Auto) 6.6 Eos % (Auto) 0.5 L Baso % (Auto) 0.4 Neut # (Auto) 67111 H Lymph # (Auto) 500 L [place] # (Auto) 800 Eos # (Auto) 100 Baso # (Auto) 0 PT INR APTT D-Dimer Sodium 127 L Potassium 4.7 Chloride 95 L Carbon Dioxide 24 BUN 29 H Creatinine 1.67 H Estimated GFR 43.4 L BUN/Creatinine Ratio 17.4 Glucose 335 H Hemoglobin A1c Lactate 1.5 Calcium 8.7 Magnesium Total Bilirubin 0.9 AST 19 ALT 19 Alkaline Phosphatase 106 Total Protein 6.6 Albumin 3.4 L Globulin 3.2 Albumin/Globulin Ratio 1.1 Procalcitonin Nasal Screen MRSA (PCR) SARS-CoV-2 (PCR) 12/12/20 12/12/20 12/12/20 19:45 19:45 19:45 WBC RBC Hgb Hct MCV MCH MCHC RDW Plt Count Neut % (Auto) Lymph % (Auto) [place] % (Auto) Eos % (Auto) Baso % (Auto) Neut # (Auto) Lymph # (Auto) [place] # (Auto) Eos # (Auto) Baso # (Auto) PT INR APTT D-Dimer Sodium Potassium Chloride Carbon Dioxide BUN Creatinine Estimated GFR BUN/Creatinine Ratio Glucose Hemoglobin A1c 10.2 H Lactate Calcium Magnesium 1.9 Total Bilirubin AST ALT Alkaline Phosphatase Total Protein Albumin Globulin Albumin/Globulin Ratio Procalcitonin 0.41 Nasal Screen MRSA (PCR) SARS-CoV-2 (PCR) 12/12/20 12/12/20 12/13/20 22:50 22:51 00:30 WBC RBC Hgb Hct MCV MCH MCHC RDW Plt Count Neut % (Auto) Lymph % (Auto) [place] % (Auto) Eos % (Auto) Baso % (Auto) Neut # (Auto) Lymph # (Auto) [place] # (Auto) Eos # (Auto) Baso # (Auto) PT INR APTT D-Dimer Sodium Potassium Chloride Carbon Dioxide BUN Creatinine Estimated GFR BUN/Creatinine Ratio Glucose Hemoglobin A1c Lactate 1.3 Calcium Magnesium Total Bilirubin AST ALT Alkaline Phosphatase Total Protein Albumin Globulin Albumin/Globulin Ratio Procalcitonin Nasal Screen MRSA (PCR) Negative for mrsa SARS-CoV-2 (PCR) Negative 12/13/20 12/13/20 12/13/20 04:58 04:58 04:58 WBC 16.1 H RBC 4.74 Hgb 14.3 Hct 42.4 MCV 89.4 MCH 30.2 MCHC 33.8 RDW 14.5 Plt Count 159 Neut % (Auto) 92.5 H Lymph % (Auto) 1.8 L [place] % (Auto) 5.6 Eos % (Auto) 0.0 L Baso % (Auto) 0.1 Neut # (Auto) 33710 H Lymph # (Auto) 300 L [place] # (Auto) 900 Eos # (Auto) 0 Baso # (Auto) 0 PT 13.9 H INR 1.2 APTT 32 D-Dimer Sodium 127 L Potassium 5.3 H Chloride 100 Carbon Dioxide 19 L BUN 27 H Creatinine 1.55 H Estimated GFR 47.3 L BUN/Creatinine Ratio 17.4 Glucose 288 H Hemoglobin A1c Lactate Calcium 7.9 L Magnesium Total Bilirubin 0.6 AST 22 ALT 17 Alkaline Phosphatase 88 Total Protein 6.4 Albumin 3.3 L Globulin 3.1 Albumin/Globulin Ratio 1.1 Procalcitonin Nasal Screen MRSA (PCR) SARS-CoV-2 (PCR) 12/13/20 12/13/20 04:58 04:58 WBC RBC Hgb Hct MCV MCH MCHC RDW Plt Count Neut % (Auto) Lymph % (Auto) [place] % (Auto) Eos % (Auto) Baso % (Auto) Neut # (Auto) Lymph # (Auto) [place] # (Auto) Eos # (Auto) Baso # (Auto) PT INR APTT D-Dimer 488 H Sodium Potassium Chloride Carbon Dioxide BUN Creatinine Estimated GFR BUN/Creatinine Ratio Glucose Hemoglobin A1c Lactate 1.3 Calcium Magnesium Total Bilirubin AST ALT Alkaline Phosphatase Total Protein Albumin Globulin Albumin/Globulin Ratio Procalcitonin Nasal Screen MRSA (PCR) SARS-CoV-2 (PCR) [facility] Medical History (Updated 12/13/20 @ 00:32 by JANIE Santos) Coronary artery disease Essential hypertension History of necrotizing fasciitis History of ST elevation myocardial infarction (STEMI) Mixed hyperlipidemia due to type 2 diabetes mellitus Pacemaker Surgical History (Updated 12/13/20 @ 00:32 by JANIE Santos) History of coronary artery bypass graft x 6 History of implanted electronic device Family History (Updated 12/13/20 @ 00:34 by JANIE Santos) Father Hypertension Hyperlipidemia Stroke Diabetes mellitus Heart attack Mother Diabetes mellitus Heart attack Hyperlipidemia Hypertension Stroke Social History household members: spouse and family Smoking Status: Former smoker alcohol intake: current Assessment & Plan Assessment & Plan narrative: This is a 50-year-old male with a past medical history of hypertension, hyperlipidemia, history of ischemic cardiomyopathy secondary to CAD with AICD implant, type 2 diabetes admitted with sepsis secondary to a left submandibular abscess and subsequent cellulitis. 1. Sepsis secondary to a left submandibular abscess and subsequent cellulitis, acute, present on admission -SOFA score :2 with KAMILAH and hypotension. both now improving. -Soft Tissue Neck CT:Findings most compatible with left submental abscess measuring 2.2 cm and volume of 4 cc. Suspect submandibular gland abscess. A suppurative lymph node with abscess or mass could have a similar appearance. -Dr. Deluna with ENT performed bedside drainage of L submandibular abscess today. 5 cc of pus removed and sent for culture. Asks us to reach out to [facility] tomorrow with Dr. Bland for follow up. -follow up culture, continue antibiotics unasyn and steroids. 2. Hyponatremia, acute, present on admission -as evidence by sodium 127. Ordered urinalysis, urine sodium and urine creatinine. pending. Likely hypovolemic given sepsis. -continue NS at 125. repeat bmp tomorrow. 3. insulin-dependent type 2 diabetes/hyperglycemia, acute on chronic, present on admission, uncontrolled -as evidenced by a glucose 335. Lantus 30 units ordered q.h.s. but will increase to 40 given steroids. and patient placed on diabetes protocol with high a sliding scale dosing. -will hold patient's metformin & glipizide. 4. Hypertension in the setting coronary artery disease and -holding home meds in setting of sepsis, restart as able 5. Obesity, acute on chronic, present on admission -is evidence by BMI 34.4. makes him at risk for increased complications from sepsis and infection. 6. Tobacco (chewing)/nicotine dependence/abuse, acute on chronic, present on admission -patient counseled on tobacco cessation. -ordered nicotine patch 7. HLD - continue home medications 8. History of CAD, ischemic cardiomyopathy with chronic heart failure (previously systolic now improved EF) s/p AICD - patient with history of ischemic cardiomyopathy, per chart EF improved to 45% from 20-25% previously. No acute indication for repeat TTE. - AICD placed by Dr. Harden. Follows with [facility] cardiology. -restart medications including diuretics as necessary. Code status: Full code Surrogate decision maker: Spouse Gaudencio Lane COVID PCR: Negative DVT/VTE prophylaxis: Lovenox Dispo: Admitted as inpatient.
--- NOTE | 2020-12-13 17:34 | PC.NURSE ---
Evening Shift Note: Pt denies pain, ESCALANTE, withdrawn affect. A and O X4. Pt on RA, lungs CTA. SPO2 98%. Denies SOB/cough. Pt with good appetite, denies nausea. BG elevated to 304. Hgb A1C elevated. Given sliding scale and long-acting insulin. Pt otherwise expresses that he would like to be discharged as soon as possible. This RN discussed the need for iv antibiotics to treat infection. Call light within reach, pt is using it appropriately to call for assistance.
[2020-12-14] MEDS: AMPICILLIN/SULBACTAM 3 GM 3 GM in SODIUM CHLORIDE 0.9% 100 ML IV ×3 (01:29→12:22)
[2020-12-14] MEDS: SODIUM CHLORIDE 0.9% 1,000 ML 125 ML IV (03:25)
[2020-12-14 05:10] VITALS: BP 182/97; PULSE 101; RESP 18; TEMP 36.2; O2SAT 98
[2020-12-14 05:57] LABS: Add Manual Diff / Slide Review NO; Basophils Absolute Auto 0 /uL (0-100); Basophils Percent Auto 0.2 % (0-2); Eosinophils Absolute Auto 0 /uL (0-450); Hematocrit 44.7 % (41-53); Hemoglobin 14.9 g/dL (13.5-17.5); Lymphocytes Absolute Auto 300 /uL (1100-4500); Lymphocytes Percent Auto 2.1 % (25-40); Mean Corpuscular HGB Conc 33.4 % (30-36); Mean Corpuscular Hemoglobin 30.2 PG (26-34); Mean Corpuscular Volume 90.4 fL (80-100); Monocytes Absolute Auto 1000 /uL (0-900); Monocytes Percent Auto 6.8 % (3-14); Neutrophils Absolute Auto 13100 /uL (1500-7000); Neutrophils Percent Auto 90.9 % (50-75); Platelet Count 188 X10^3/uL (150-400); Red Blood Cell Count 4.94 X10^6/uL (4.5-5.9); Red Cell Distribution Width 14.8 % (11.6-14.8); White Blood Cell Count 14.4 X10^3/uL (4.5-11.0)
[2020-12-14 06:07] LABS: Alanine Aminotransferase 19 IU/L (<50); Albumin 3.4 g/dL (3.5-5.0); Alkaline Phosphatase 99 U/L (38-126); Aspartate Aminotransferase 20 IU/L (17-59); BUN Creatinine Ratio 29.6 (6-22); Bilirubin Total 0.7 mg/dL (0.2-1.3); Blood Urea Nitrogen 42 mg/dL (9-20); Calcium 8.1 mg/dL (8.4-10.2); Carbon Dioxide 18 mmol/L (22-32); Chloride 102 mmol/L (98-107); Estimated Glomerular Filt Rate 52.4 mL/min (>60); Globulin 3.4 g/dL (1.7-4.1); Glucose 338 mg/dL (70-100); HEMOLYSIS < 15 (0-50); Sodium 130 mmol/L (137-145); Total Protein 6.8 g/dL (6.3-8.2)
[2020-12-14 06:10] LABS: Potassium 5.1 mmol/L (3.4-5.1)
[2020-12-14 08:00] VITALS: BP 154/91; PULSE 90; RESP 17; TEMP 36.1; O2SAT 97
[2020-12-14] MEDS: INSULIN LISPRO 100 UNIT/ML 3ML VIAL SUBCUT ×2 (09:06→12:14)
[2020-12-14] MEDS: DEXAMETHASONE 10 MG/ML VIAL IV (09:06)
--- NOTE | 2020-12-14 11:48 | CM.DPC ---
DCP/Assessment: Reviewed chart. Patient is a 50yr old male admitted to [facility] with mild sepsis related to left submental abscess. PCP listed is Dr. Giraldo. Primary payor is 1)[employer] AD[employer]. Met with patient in the AM on 12-13-20 during rounds. Patient alert, oriented, and resting in bed at time of visit. Patient scheduled to have ENT visit on 12-13-20 with possible I&D. Patient appears to be I with all ADL's. Patient denies any needs during visit and shows frustration in waiting for ENT. Patient reports to medical team that he may not stay in hospital. Current d/c plan is to d/c home when medically stable. It anticipated that patient will d/c on po abx. P: Home when stable. YARI Andrade Discharge Planning/Care Management Advanced directive,confirm from FACILITY Start: 12/13/20 01:17 Freq: Q24H Status: Complete Protocol: Document 12/13/20 07:56 TJB (Rec: 12/13/20 07:57 TJB [id number]) Advance Directive, confirm on record Time 07:56 Person contacted pt Copy received No CM Discharge Assessment Start: 12/14/20 11:40 Freq: Status: Active Protocol: Document 12/14/20 11:40 KJS (Rec: 12/14/20 11:48 KJS [id number]) Discharge Planning Assessment Assigned Nursing Associate YARI Andrade Contact Information YARI Andrade Advance Directives? No Advance Directives on File No History Provided By Patient,Medical Record Prior Living Arrangements House Household Members spouse,family Type of transporation used prior to Drives own vehicle admit Independent with ADL's Yes Is patient alert and oriented? Yes Barriers to Discharge No Discharge Plan Home Transportation Arrangement Family to provide transport? Additional Comment Patient denies any d/c planning needs. Review Status In Process Next Review Type Continued Stay Review
[2020-12-14 12:00] VITALS: BP 147/84; PULSE 88; RESP 17; TEMP 36.5; O2SAT 97
[2020-12-14] MEDS: SODIUM CHLORIDE 0.9% 250 ML 21 ML IV (12:20)
--- NOTE | 2020-12-14 13:54 | PC.NURSE ---
pt prepared to discharge following gram stain results indicating strep rather than mrsa- po abx electronically [facility] to [facility]- here to escort home- answered all questions to their satisfaction
--- NOTE | 2020-12-14 17:47 | P.PN_ITS ---
Subjective Subjective Date Patient Seen: 12/14/20 Time Patient Seen: 06:45 Interval history: Pt admitted 12/12, LEFT submandibular deep neck abscess, s/p needle aspiration, cx showing strep viridans. Mild subjective improvement since yest per pt. No airway issues at any point, pain improved but tenderness remains. CT 12/12 reviewed, 2cm abscess, no contrast utilized. Exam Vital Signs (past 8 hours): - 12/14/20 12:00 Temperature 97.7 F Pulse Rate 88 Respiratory Rate 17 Blood Pressure 147/84 H Pulse Oximetry 97 Oxygen Delivery Method Room Air Oxygen Flow Rate 0 Narrative Exam Narrative: WD, obese, alert. L>R submental/submandibular induration, some erythema, no fluctuance. No trismus. Probable stone palpable LEFT FOM. Normal oral cavity, poor dentition. Objective Labs Result Diagrams: 12/14/20 04:55 12/14/20 04:55 Labs: Laboratory Results - last 24 hr 12/14/20 12/14/20 04:55 04:55 WBC 14.4 H RBC 4.94 Hgb 14.9 Hct 44.7 MCV 90.4 MCH 30.2 MCHC 33.4 RDW 14.8 Plt Count 188 Neut % (Auto) 90.9 H Lymph % (Auto) 2.1 L [place] % (Auto) 6.8 Eos % (Auto) 0.0 L Baso % (Auto) 0.2 Neut # (Auto) 34164 H Lymph # (Auto) 300 L [place] # (Auto) 1000 H Eos # (Auto) 0 Baso # (Auto) 0 Sodium 130 L Potassium 5.1 Chloride 102 Carbon Dioxide 18 L BUN 42 H Creatinine 1.42 H Estimated GFR 52.4 L BUN/Creatinine Ratio 29.6 H Glucose 338 H Calcium 8.1 L Total Bilirubin 0.7 AST 20 ALT 19 Alkaline Phosphatase 99 Total Protein 6.8 Albumin 3.4 L Globulin 3.4 Albumin/Globulin Ratio 1.0 [facility] Medical History Coronary artery disease Essential hypertension History of necrotizing fasciitis History of ST elevation myocardial infarction (STEMI) Mixed hyperlipidemia due to type 2 diabetes mellitus Pacemaker Surgical History History of coronary artery bypass graft x 6 History of implanted electronic device Family History Father Hypertension Hyperlipidemia Stroke Diabetes mellitus Heart attack Mother Diabetes mellitus Heart attack Hyperlipidemia Hypertension Stroke Social History household members: spouse and family Smoking Status: Former smoker alcohol intake: current Assessment & Plan Assessment & Plan narrative: A: Deep neck space abscess, presumed odontogenic, possible obstructive sialadenitis. High risk due to DM. No airway obstruction currently. P: Continue IV Abx, tailor to cx, cont steroids. Repeat imaging with any worsening. Low threshold to consider transfer to higher level care with known risk factors.
--- NOTE | 2020-12-14 18:23 | PM.DS.1 ---
History of Present Illness History of Present Illness Chief complaint: LEFT SIDE OF FACE SWELLING Narrative: Patient is a 50-year-old male [address] presented to the ED with chief compliant of left side of neck swelling with a fever and chills for the last 5 days. He denies any difficulty swallowing, no tongue pain, no difficulty breathing. He does have poor dental hygiene and reports a hx of dental infections. He last saw a dentist over 20yrs ago. He initially saw his PCP who told him to suck on lemon drops but it has progressively gotten worse. He started developing headache today which brought him to the emergency department. He denies any chest pain or SOB. Patient states that he has had no Nausea or vomiting until he received morphine in the ED today. Patient is in no distress, does not appear septic or fluid overloaded,airway is protected and stable, and resting quietly in the bed. 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 Fina Best), type 2 diabetes. Patient is unable to tell me if he is taking an anticoagulant, the nurse contacted his who also was unable to tell us if he is taking anticoagulant. Patient's vitals upon admit BP 75/59, HR 79, RR 18, O2 saturation 97% on room air with a map of 63. Labs: WBC 12.1, neut# 10,700, low sodium 127, Cl 95, BUN 29, creatinine 1.67, glucose 335, EGFR 43.4, patient did not appear to be in DKA and has an anion gap of 8, patient's creatinine in present elevation of 0.42 noting mild KAMILAH though patient's baseline is unknown. Soft Tissue Neck CT:Findings most compatible with left submental abscess measuring 2.2 cm and volume of 4 cc. Suspect submandibular gland abscess. 2200-Dr. Anthony Deluna ENT updated on patient's symptoms test results and CT scan at this time recommends 20 mg of Decadron and then 10 mg IV twice a day along with IV antibiotics and close monitoring. He is happy to consult and recommends hospitalist call him 1st thing in the morning. Discharge Providers Provider Date of admission: 12/12/20 23:35 Discharge Date: 12/14/20 Primary care physician: Joaquín Giraldo MD Consults: 12/13/20 08:48 Consult to Physician Routine Comment: Consulting Provider: Anthony Deluna Reason for consultation: submental collection Discharge provider: Steven Hu MD Summary Hospital Course Discharge Diagnosis: 1. Left submandibular abscess with fluid cultures positive for strep viridans 2. Ischemic cardiomyopathy 3. AICD implant 4. Type 2 diabetes insulin requiring, uncontrolled 5. Tobacco dependency 6. Sepsis secondary to submandibular abscess Patient was admitted with sepsis parameters with initial sofa score of 2 with KAMILAH and hypotension and responded to overnight IV antibiotic and fluid resuscitation. Neck CT showed a deep left submandibular abscess measuring 2.[address] Deluna with ENT performed I and D in the ED with removal of 0.[address] Bland evaluated patient for ENT the following morning. Cultures of fluid drainage grew strep viridans. Patient had some improvement with IV Unasyn and dexamethasone. His WBC improved from 16.1-14.4 and he was not having any fever during admission. He was not having any trouble with swallowing or airway this morning. He still had quite remarkable swelling and induration under his jaw. We intended to keep patient at least 1 more day for IV antibiotic and steroids but patient was quite insistent to discharge home. Patient was made aware that his condition could worsen necessitating him coming back to the hospital but nevertheless still desired to go home. He was instructed to follow-up with ENT in 2 days. He is being discharged on Augmentin and prednisone. Exam Vital Signs (past 8 hours): - 12/14/20 12:00 Temperature 97.7 F Pulse Rate 88 Respiratory Rate 17 Blood Pressure 147/84 H Pulse Oximetry 97 Oxygen Delivery Method Room Air Oxygen Flow Rate 0 Objective Labs Result Diagrams: 12/14/20 04:55 12/14/20 04:55 Labs: Laboratory Results - last 24 hr 12/14/20 12/14/20 04:55 04:55 WBC 14.4 H RBC 4.94 Hgb 14.9 Hct 44.7 MCV 90.4 MCH 30.2 MCHC 33.4 RDW 14.8 Plt Count 188 Neut % (Auto) 90.9 H Lymph % (Auto) 2.1 L [place] % (Auto) 6.8 Eos % (Auto) 0.0 L Baso % (Auto) 0.2 Neut # (Auto) 99530 H Lymph # (Auto) 300 L [place] # (Auto) 1000 H Eos # (Auto) 0 Baso # (Auto) 0 Sodium 130 L Potassium 5.1 Chloride 102 Carbon Dioxide 18 L BUN 42 H Creatinine 1.42 H Estimated GFR 52.4 L BUN/Creatinine Ratio 29.6 H Glucose 338 H Calcium 8.1 L Total Bilirubin 0.7 AST 20 ALT 19 Alkaline Phosphatase 99 Total Protein 6.8 Albumin 3.4 L Globulin 3.4 Albumin/Globulin Ratio 1.0 PFSH Medical History Coronary artery disease Essential hypertension History of necrotizing fasciitis History of ST elevation myocardial infarction (STEMI) Mixed hyperlipidemia due to type 2 diabetes mellitus Pacemaker Surgical History History of coronary artery bypass graft x 6 History of implanted electronic device Family History Father Hypertension Hyperlipidemia Stroke Diabetes mellitus Heart attack Mother Diabetes mellitus Heart attack Hyperlipidemia Hypertension Stroke Social History household members: spouse and family Smoking Status: Former smoker alcohol intake: current Discharge Plan Discharge Plan Patient Disposition: Home Provider Discharge Comment: Please schedule ENT follow up with Dr. Bland in 2 days Discharge orders & Medications Prescriptions: New amoxicillin-pot clavulanate [Augmentin] 875-125 mg tablet 1 tab PO BID Qty: 20 RF: 0 prednisone 20 mg tablet 40 mg PO DAILY Qty: 8 RF: 0 Continued atorvastatin 80 mg tablet 80 mg PO QPM RF: 0 carvedilol 6.25 mg tablet 6.25 mg PO BID RF: 0 aspirin 325 mg Tablet 325 mg PO QPM RF: 0 glipizide 10 mg tablet extended release 24hr 20 mg PO QAM RF: 0 lisinopril 20 mg tablet 20 mg PO QAM RF: 0 furosemide 20 mg tablet 20 mg PO BID RF: 0 spironolactone 50 mg tablet 50 mg PO QAM RF: 0 metformin 750 mg tablet extended release 24 hr 750 mg PO QPM RF: 0 insulin glargine 100 unit/mL Cartridge 30 unit SUBCUT QPM RF: 0 Acid [employer]rization [employer] Inspector (omeprazole) 40 mg 40 mg PO QAC RF: 0 omeprazole 40 mg Capsule,Delayed Release(Dr/Ec) 40 mg PO QAM RF: 0 Follow up/Referrals: Abhi Bland MD [Physician] - 12/16/20 Joaquín Giraldo MD [Primary Care Provider] - Discharge Health Status Multidrug resistant organism: No MDRO Diet/Activity/Treatments Diet: Diet as Tolerated Discharge Data Primary Care Provider: Joaquín Giraldo V
--- NOTE | 2020-12-16 06:25 | OP_ITS ---
DATE OF SERVICE: 12/13/2020 PROCEDURE: Needle aspiration/incision and drainage of the left submandibular space abscess. Code 07423. PREOP DIAGNOSIS: CT evidence of abscess in the left submandibular space anterior aspect. POSTOP DIAGNOSIS: CT evidence of abscess in the left submandibular space anterior aspect. INDICATIONS: CT evidence of abscess in the left submandibular space anterior aspect. OPERATIVE FINDINGS: 4.5 cc of roblero purulent material was aspirated. DESCRIPTION OF PROCEDURE: With the patient supine in the patient's bed with the chin extended, a sterile prep was performed of the upper neck space in this region with Betadine. 18-gauge needle after 2% Xylocaine with epinephrine cutaneous and subcutaneous anesthesia and hemostasis with a 3 cc syringe and a 27-gauge needle. Then, with a 5 cc syringe and an 18-gauge needle, through the numb cutaneous area, the abscess cavity was entered and emptied as much as possible. The syringe was sent to Pathology for culture and sensitivity. Pressure for minor capillary ooze. He will be followed up with further recommendations after the culture and sensitivity are analyzed and we see clinically how he does. Junito Lane - GJ/fn/HB doc#: [id number]/job#: [id number] dd: 12/15/2020 14:10:00 dt: 12/16/2020 06:21:00 DICTATING /COPIES TO: Anthony Deluna MD COPIES MNE: BHARATI; Signed by Constantine Jones. surgeon not available to sign
--- NOTE | 2020-12-16 06:25 | CONS_ITS ---
DATE OF SERVICE: 12/13/2020 HISTORY: A patient born 1970 was admitted last evening to the emergency room with swollen neck and, in a consultation, was placed on antibiotics and steroids. He stopped getting worse from this pain and swelling of the neck, which has been progressive over the last week, but he is not markedly improved. CT of the neck was examined and there was a lucency 2.5 cm in the anterior aspect of the left submandibular space, and swelling of the neck, right and left. On examination, he is tender, right and left of the neck, particularly on the left side where there is firm swelling palpable in the deep space anteriorly aspect of the left submandibular space. ASSESSMENT: Submandibular space abscess and cellulitis of the upper neck, right and left. Also, on examination, there is a firm area about 1.5 cm back from the entrance into El's duct in the left floor of the mouth, which probably represents a salivary stone. SUGGESTIONS: Continue antibiotics and steroids. Needle aspiration incision and drainage would be advised and the patient agrees to this, and will be performed at this point. At some point in the future under an operating microscope, the submandibular gland ducts (Cass's ducts) will have to be cannulated and see if there are stones that need to be removed. It is possible that a formal incision and drainage will be necessary of particularly this left submandibular space if it does not defervesce with antibiotics and steroids. The patient understands and his main concern is that he wants something to eat at this point. Junito Lane - ROB/[place]/REGAN doc#: [id number]/job#: [id number] dd: 12/15/2020 14:10:00 dt: 12/16/2020 05:50:00 DICTATING /COPIES TO: Anthony Deluna MD COPIES MNE: BHARATI; Signed by Constantine Jones. Surgeon not available
== END 2020-12-14 14:49 | disposition home or self-care (01) | DRG 872 ==
LOC: ED 20:40 → AC 23:36 → ICU 12-13 09:14
PROVIDERS: Admitting Provider Nurse Practitioner Family; Emergency Provider Emergency Medicine; PCP Internal Medicine; Referring Provider Emergency Medicine; Visit Provider Nurse Practitioner Family
DX: A40.8 Other streptococcal sepsis (principal); L02.01 Cutaneous abscess of face; E87.1 Hypo-osmolality and hyponatremia; L03.211 Cellulitis of face; I50.22 Chronic systolic (congestive) heart failure; N17.9 Acute kidney failure, unspecified; R65.20 Severe sepsis without septic shock; I95.9 Hypotension, unspecified; E78.2 Mixed hyperlipidemia; I25.10 Atherosclerotic heart disease of native coronary artery without angina pectoris; Z95.1 Presence of aortocoronary bypass graft; Z95.810 Presence of automatic (implantable) cardiac defibrillator; E66.9 Obesity, unspecified; Z68.34 Body mass index [BMI] 34.0-34.9, adult; F17.220 Nicotine dependence, chewing tobacco, uncomplicated; E11.9 Type 2 diabetes mellitus without complications; Z79.4 Long term (current) use of insulin; Z20.822 Contact with and (suspected) exposure to COVID-19; I25.5 Ischemic cardiomyopathy; I11.0 Hypertensive heart disease with heart failure
CPT/HCPCS: 36415; 70491; 80053; 81003; 82962; 83036; 83605; 83735; 84145; 85025; 85379; 85610; 85730; 87040; 87070; 87075; 87077; 87205; 87635; 87797; 96361; 96365; 96367; 96375; 99284; C9803; J0295; J1100; J1650; J1815; J1885; J2270; Q9967